=== PATIENT | female | born 1980 | race Caucasian/White ===

== ENCOUNTER 2022-09-22 08:48 | Emergency (ER) | payer BC, SELFPAY ==
[2022-09-22 08:52] VITALS: BP 127/80; PULSE 97; RESP 18; TEMP 36.9; O2SAT 98
--- NOTE | 2022-09-22 09:38 | ECG_ITS ---
Measurements Intervals [place] Rate: 80 P: 76 LA: 142 QRS: 39 QRSD: 130 T: 17 QT: 391 QTc: 453 Interpretive Statements SINUS RHYTHM WITH SINUS ARRHYTHMIA RIGHT BUNDLE BRANCH BLOCK BASELINE ARTIFACT- I, II, III, AVR, AVL, AVF ABNORMAL ECG NO PREVIOUS ECG AVAILABLE FOR COMPARISON Electronically Signed On 09-22-2022 10:21:08 [employer] by Oscar Miller D.O.
--- NOTE | 2022-09-22 09:38 | ED.ANXIETY ---
HPI - Anxiety General Chief Complaint: Anxiety Stated Complaint: Acute anxiety Time Seen by Provider: 09/22/22 09:03 Source: patient Mode of arrival: ambulatory Limitations: no limitations History of Present Illness HPI narrative: 42-year-old female with history of anxiety presents today with increased anxiety and suicidal thoughts without a plan. Patient states she has been traveling with her when about a month ago she was staying in [place] watching her parents house and she had noted some increased anxiety. She did see a physician there who prescribed her Ativan and sertraline. She was instructed to start the sertraline if she noticed that she was using the Ativan a couple days in a row. Patient states she was doing okay until this weekend when she noticed she took Ativan 2 days in a row. She then decided to start the sertraline. Couple hours after the sertraline she started having racing thoughts. Since then she did have some suicidal ideation she was standing at a curb and had thoughts of stepping off the curb in front of a vehicle to end her life. Patient states her thought at that time was to do anything to just not feel the way that she is. Patient currently denies suicidal ideation at this time. Patient states the thoughts have been crossing her mind over the past couple days but has no intent or plan to act on them. But does state that the other day it was a very impulsive situation that she had and she has concerns. Patient does take half of the Ativan that was prescribed which will put her to sleep for 4 hours. She denies any increased stressors at home except for currently traveling. She had plans to go to [facility] today but they change their plans due to her anxiety. Instead of flying from [place] to [facility] they flew back here from [place]. was not at the bedside during examination. was brought in after assessment and her concerns are that the patient is putting other people's needs before hers. MD complaint: anxiety Related Data Home Medications Medication Instructions Recorded Confirmed lorazepam 0.5 mg tablet (Ativan) 0.5 mg PO DAILY PRN Anxiety 09/22/22 09/22/22 Allergies Allergy/AdvReac Type Severity Reaction Status Date / Time No Known Allergies Allergy Verified 09/22/22 09:09 Review of Systems Review of Systems: CONSTITUTIONAL: Denies fever, chills, or sweats. EYES: Denies visual changes, redness, or discharge. ENT: Denies rhinorrhea, congestion, sore throat, or otalgia. CARDIOVASCULAR: Denies chest pain, palpitations, or edema. RESPIRATORY: Denies cough or dyspnea. GASTROINTESTINAL: Denies abdominal pain, nausea, vomiting, or diarrhea. GENITOURINARY: Denies dysuria or hematuria. SKIN: Denies rash or itching. MUSCULOSKELETAL: Denies back pain, joint pain, or myalgia. NEUROLOGIC: Denies headache, numbness, dizziness, or weakness. PSYCHIATRIC: Increased anxiety, previous suicidal ideation, not currently suicidal. Denies depression. Exam Narrative: GENERAL: Well-appearing, well-nourished, and in no acute distress. HEAD: Normocephalic, atraumatic. EYES: PERRLA and EOMI. ENT: Nares clear, no rhinorrhea or epistaxis. Mucous membranes moist. Oropharynx without tonsillar hypertrophy exudate or other lesions. Bilateral TMs pearly coyne nonbulging NECK: Supple. No adenopathy or masses. No carotid bruits or JVD CHEST: Clear to auscultation. No respiratory distress. No wheezes rales or rhonchi HEART: Regular rate and rhythm. No murmur heard. Normal peripheral pulses. ABDOMEN: Soft, nontender, nondistended, normal active bowel sounds. EXTREMITIES: Normal range of motion. No edema. SKIN: Warm, dry, no rash. NEURO: No focal deficits. Alert and oriented x3. PSYCH: Normal mood and affect. Course Course Emergency Course: Long conversation had with patient about plan of care. Shared decision making for patient to be evaluated by nail mill worker. is at the bedside and is in agreement
[2022-09-22] MEDS: hydrOXYzine HCL 25 MG TABLET PO (09:44)
[2022-09-22] MEDS: ONDANSETRON HCL ODT 4 MG TABLET PO (09:44)
[2022-09-22 10:04] LABS: Appearance Urine Clear (Clear); Bilirubin Urine Negative (Negative); Blood Urine Negative (Negative); Color Urine Yellow (Yellow); Glucose Urine UA Negative (Negative); Ketones Urine 2+ mg/dL (Negative); Leukocyte Esterase Ur Negative LEU/UL (Negative); Nitrate Urine Negative (Negative); Protein Urine Negative (Negative); Specific Grav Ur 1.017 (1.001-1.035)
[2022-09-22 10:06] LABS: Basophils Percent Auto 0.9 % (0.2-1.2); Eosinophils Percent Auto 0.6 % (0-4.4); Hemoglobin 11.9 g/dL (12.0-15.0); Immature Granulocyte Absolute 0.02 K/mm3 (0.00-0.031); Immature Granulocyte Percent A 0.4 % (0-0.5); Lymphocytes Absolute Auto 0.97 K/mm3 (0.9-3.2); Mean Corpuscular HGB Conc 33.1 g/dl (32-36); Mean Corpuscular Hemoglobin 28.9 pg (26-34); Mean Corpuscular Volume 87.4 fl (80-100); Mean Platelet Volume 8.6 fl (7.4-10.4); Monocytes Absolute Auto 0.4 K/mm3 (0.1-0.6); Monocytes Percent Auto 7.8 % (2.6-8.5); Neutrophils Absolute Auto 3.2 K/mm3 (1.3-6.7); Neutrophils Percent Auto 69.3 % (45.5-73.1); Platelet Count Result 322 k/mm3 (150-375); Red Blood Count 4.12 M/mm3 (4.2-5.4); Red Cell Distribution Width 12.4 % (11.5-14.5); White Blood Count 4.6 K/mm3 (4.5-10.0)
[2022-09-22 10:40] LABS: Alanine Aminotransferase 17 U/L (6-35); Albumin Level 4.4 g/dL (3.5-5.1); Alkaline Phosphatase 66 U/L (38-126); Anion Gap 8 mmol/L (8-16); Aspartate Amino Transferase 23 U/L (14-36); Bilirubin,Total 0.6 mg/dL (0.2-1.3); Blood Urea Nitrogen 12 mg/dL (7-17); Calcium 9.2 mg/dL (8.4-10.2); Carbon Dioxide 25 mmol/L (22-30); Chloride 103 mmol/L (98-107); Estimated CRCL calculation 61 ml/min; Estimated Glomerular Filt Rate > 60; Glucose 94 mg/dL (65-110); Sodium 136 mmol/L (137-145)
[2022-09-22 10:41] LABS: Acetaminophen < 10 ug/mL (10-30); Ethanol < 10 mg/dL (<10); Salicylate < 1.0 mg/dL (2-20)
[2022-09-22 10:52] LABS: Add Urine Microscopic? NO
[2022-09-22 11:10] LABS: Amphetamine Screen Urine Negative (Negative); Barbiturate Screen Urine Negative (Negative); Benzodiazepines Screen Urine Negative (Negative); Cannabinoid Screen Urine Negative (Negative); Cocaine Screen Urine Negative (Negative); Methadone Screen Urine Negative (Negative); Opiate Screen Urine Negative (Negative); Phencyclidine Screen Urine Negative (Negative)
[2022-09-22 11:10] LABS: Thyroid Stimulating Hormone 0.972 uIU/mL (0.465-4.680)
[2022-09-22 11:48] VITALS: BP 112/56; PULSE 68; RESP 16; O2SAT 100
== END 2022-09-22 14:13 | disposition home or self-care (01) ==
PROVIDERS: Emergency Provider Nurse Practitioner Family
DX: F41.9 Anxiety disorder, unspecified (principal)
CPT/HCPCS: 36415; 80053; 80307; 81003; 84443; 85025; 93005; 99284; A9270